=== PATIENT | male | born 1980 | race Hispanic/Latino ===

== ENCOUNTER 2022-10-10 12:33 | Emergency (ER) | payer MEDICAID, MEDICARE ==
[~2022-10-10] VITALS: Ht 175.3 cm; Wt 93.4 kg
[~2022-10-10 12:33] MED LIST: ALPR2TAB7 PO
[2022-10-10 13:12] VITALS: BP 120/75
== END 2022-10-10 15:52 | disposition left against medical advice (07) ==
LOC: EDH 12:33
DX: Z48.00 Encounter for change or removal of nonsurgical wound dressing (principal); Z53.21 Procedure and treatment not carried out due to patient leaving prior to being seen by health care provider
CPT/HCPCS: 99281

== ENCOUNTER → 2025-03-31 | Outpatient (CLI) | payer BC, MEDICARE ==
--- NOTE | 2025-03-31 14:15 | HMCIMG ---
DOUBLE CONTRAST UPPER GI SERIES: CLINICAL HISTORY: Diaphragmatic hernia without obstruction or gangrene Finding: The study was performed using provocative maneuvers After swallowing effervescent crystal and thick barium, there is no definite intrinsic or extrinsic lesion seen in the esophagus. There is a small hiatal hernia with grade 1 esophageal reflux. The stomach is normal in size, shape, and configuration. The rugal folds appear to be normal. The duodenal bulb, duodenal sweep, and upper jejunum appear to be normal. Fluoroscopy time: 1.0 minute. IMPRESSION: Small hiatal hernia with grade 1 esophageal reflux Otherwise NORMAL DOUBLE CONTRAST UPPER GI SERIES.
== END | disposition home or self-care (01) ==
LOC: RAH 10:11
PROVIDERS: ATTEND Internal Medicine Gastroenterology
DX: K21.9 Gastro-esophageal reflux disease without esophagitis (principal); K44.9 Diaphragmatic hernia without obstruction or gangrene
CPT/HCPCS: 74240